=== PATIENT | female | born 1985 | race Caucasian/White ===

== ENCOUNTER 2020-07-01 15:24 | Emergency (ER) | payer OTHER, BC ==
[2020-07-01 15:46] VITALS: TEMP 99.5
--- NOTE | 2020-07-01 17:22 | XR ---
EXAMINATION TYPE: XR wrist complete LT DATE OF EXAM: 07/01/2020 COMPARISON: NONE HISTORY: Pain TECHNIQUE: 4 views FINDINGS: I see no fracture nor dislocation. Carpal bones are intact. Joint spaces are normal. Metaca rpals are intact. Scaphoid appears normal. There is bone island in the proximal scaphoid bone. IMPRESSION: Negative left wrist exam.
--- NOTE | 2020-07-01 17:23 | XR ---
EXAMINATION TYPE: XR hand complete LT DATE OF EXAM: 07/01/2020 COMPARISON: NONE HISTORY: Pain TECHNIQUE: 3 views FINDINGS: Metacarpals are intact. I see no fracture nor dislocation. Joint spaces are normal. IMPRESSION: Negative left hand exam.
[2020-07-01] MEDS ORDERED: HYDROmorphone 1 MG/ML 1 ML SYRINGE IM STA (18:25)
[2020-07-01 19:03] VITALS: BP 153/90; PULSE 98; RESP 18
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
--- NOTE | 2020-07-01 19:24 | XR ---
EXAMINATION TYPE: XR thoracic spine 2V DATE OF EXAM: 07/01/2020 COMPARISON: NONE HISTORY: Pain TECHNIQUE: 3 views FINDINGS: Thoracic vertebra have normal spacing and alignment. Posterior elements are intact. There i s no paraspinal mass. There is no compression fracture. IMPRESSION: Negative thoracic spine exam. No fracture.
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
== END 2020-07-01 20:14 | disposition home or self-care (01) ==
LOC: EC 15:24
DX: M25.532 Pain in left wrist (principal); M54.2 Cervicalgia; R07.89 Other chest pain; M79.642 Pain in left hand; F41.9 Anxiety disorder, unspecified; Z79.899 Other long term (current) drug therapy; V43.52XA Car driver injured in collision with other type car in traffic accident, initial encounter; Y92.410 Unspecified street and highway as the place of occurrence of the external cause
CPT/HCPCS: 71101; 72070; 73110; 73130; 72125; 70450; 99284; 96372; J1170

== ENCOUNTER → 2020-08-08 | Outpatient (CLI) | payer BC, OTHER | END | disposition home or self-care (01) | LOC: LABWHC1 11:18 | PROVIDERS: ATTEND Family Medicine | DX: R05 Cough (principal) | CPT/HCPCS: U0003; C9803 ==

== ENCOUNTER 2022-05-30 08:43 | Emergency (ER) | payer OTHER, BC ==
[2022-05-30 09:17] VITALS: BP 123/83; PULSE 83; RESP 16; TEMP 97.9
[2022-05-30] MEDS ORDERED: ONDANSETRON ODT 4 MG TAB PO STA (09:57)
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
== END 2022-05-30 11:27 | disposition home or self-care (01) ==
LOC: EC 08:43
DX: S00.93XA Contusion of unspecified part of head, initial encounter (principal); W22.8XXA Striking against or struck by other objects, initial encounter; Y99.0 Civilian activity done for income or pay; Y92.69 Other specified industrial and construction area as the place of occurrence of the external cause
CPT/HCPCS: 70450; 99283

== ENCOUNTER → 2024-08-25 | Outpatient (CLI) | payer BC ==
--- NOTE | 2024-08-27 18:03 | MM ---
Reason for Exam: Screening (asymptomatic). Baseline mammogram. Patient History: Menarche at age 11. Patient has no children. Risk Values: Shirlene 5 year model risk: 0.6%. NCI Lifetime model risk: 11.1%. Prior Study Comparison: Patient's first Mammogram. Tissue Density: There are scattered areas of fibroglandular density. Findings: Analyzed By CAD. The pattern is symmetrical. There is some distortion in the subareolar right breast. Compression views recommended. There is some milder distortion in the upper outer mid left breast. Compression views recommended. Overall Assessment: Incomplete: need additional imaging evaluation, BI-RAD 0 Management: Diagnostic Mammogram of both breasts. A negative mammogram report should not preclude additional follow up of suspicious palpable abnormalities. Patient should continue monthly self breast exam. A clinical breast exam by your physician is recommended on an annual basis and results should be correlated with mammographic findings. Note on Shirlene scores and lifetime risk: 1. A Shirlene score greater than 3% is considered moderate risk. If this is the case, consider specialist referral to assess eligibility for a risk reducing agent. 2. If overall lifetime risk for the development of breast cancer is 20% or higher, the patient may qualify for future screening with alternating mammogram and breast MRI. [facility], , 08/27/2024 6:00 PM. Electronically signed and approved by: Abe Garcia D.O. Radiologis
== END | disposition home or self-care (01) ==
LOC: RADMAMWWP 07:06
PROVIDERS: ATTEND Family Medicine
DX: Z12.31 Encounter for screening mammogram for malignant neoplasm of breast (principal); R92.323 Mammographic fibroglandular density, bilateral breasts
CPT/HCPCS: 77063; 77067

== ENCOUNTER → 2024-09-09 | Outpatient (CLI) | payer BC ==
--- NOTE | 2024-09-09 08:56 | MM ---
Reason for Exam: Additional evaluation requested from abnormal screening. Last screening mammogram was performed less than 1 month ago. Patient History: Menarche at age 11. Patient has no children. Risk Values: Shirlene 5 year model risk: 0.6%. NCI Lifetime model risk: 11.1%. Prior Study Comparison: 08/25/2024 Bilateral MG 3D screening mammo w/cad, [facility]. Tissue Density: There are scattered areas of fibroglandular density. Findings: Analyzed By CAD. No suspicious focal lesion persists on additional views in either breast. Overall Assessment: Negative, BI-RAD 1 Management: Screening Mammogram of both breasts in 1 year. Return to routine follow-up. Results were given to the patient verbally at the time of exam. Patient should continue monthly self-breast exams. A clinical breast exam by your physician is recommended on an annual basis. This exam should not preclude additional follow-up of suspicious palpable abnormalities. Note on Shirlene scores and lifetime risk: 1. A Shirlene score greater than 3% is considered moderate risk. If this is the case, consider specialist referral to assess eligibility for a risk reducing agent. 2. If overall lifetime risk for the development of breast cancer is 20% or higher, the patient may qualify for future screening with alternating mammogram and breast MRI. [facility], , 09/09/2024 8:52 AM. Electronically signed and approved by: Arpan Jade M.D.
== END | disposition home or self-care (01) ==
LOC: RADMAMWWP 08:11
PROVIDERS: ATTEND Family Medicine
DX: R92.8 Other abnormal and inconclusive findings on diagnostic imaging of breast (principal); R92.323 Mammographic fibroglandular density, bilateral breasts
CPT/HCPCS: 77062; 77066